=== PATIENT | male | born 1965 | race African-American/Black ===

== ENCOUNTER → 2025-02-17 | Outpatient (CLI) | payer OTHER ==
--- NOTE | 2025-02-17 15:48 | XR ---
EXAMINATION TYPE: XR foot complete RT DATE OF EXAM: 02/17/2025 3:29 PM COMPARISON: 02/17/2025. CLINICAL INDICATION: Male, 59 years old with history of S99.921A, M79.671; PHH, pain TECHNIQUE: XR foot complete RT examined in the AP, oblique, and lateral projections. FINDINGS: Fracture of the first digit proximal phalanx with intra-articular extension to the interphalangeal jasbir int. No displacement of the fragments of 1 to 2 mm. Calcaneal plantar spurring. Calcaneal Achilles enthesophyte formation. IMPRESSION: Comminuted fractures of the right first digit proximal phalanx with intra-articular extension into th e interphalangeal joint. [facility], , 02/17/2025 3:46 PM
== END | disposition home or self-care (01) ==
LOC: RADXRMAIN 15:00
PROVIDERS: ATTEND Podiatrist Foot & Ankle Surgery
DX: S92.411A Displaced fracture of proximal phalanx of right great toe, initial encounter for closed fracture (principal)

== ENCOUNTER → 2025-03-03 | Outpatient (CLI) | payer OTHER ==
--- NOTE | 2025-03-03 15:09 | XR ---
EXAMINATION TYPE: XR foot complete RT DATE OF EXAM: 03/03/2025 2:51 PM COMPARISON: 02/17/2025 CLINICAL INDICATION: Male, 59 years old with history of S92.411A, pain TECHNIQUE: 3 view(s) obtained. FINDINGS: There is a stable appearing comminuted fracture distal portion proximal phalanx great toe. This has e xtension into the articular surface. Mild narrowing of the first metatarsophalangeal joint space is present. Clinical consideration for an occult fracture of the medial metaphysis proximal phalanx second digit is recommended. Achilles tendon calcaneal heel spur is present Joint spaces appear preserved. No additional fracture is identified. Follow-up can be performed IMPRESSION: 1. Comminuted fracture with intra-articular extension distal portion proximal phalanx right great to e appears stable from comparison. 2. Clinical consideration for occult fracture at the medial proximal metaphysis second digit proximal phalanx [facility], Workstation: [facility], 03/03/2025 3:06 PM
== END | disposition home or self-care (01) ==
LOC: RADXRMAIN 14:23
PROVIDERS: ATTEND Student in an Organized Health Care Education/Training Program
DX: S92.411A Displaced fracture of proximal phalanx of right great toe, initial encounter for closed fracture (principal)